=== PATIENT | female | born 1975 | race Caucasian/White ===

== ENCOUNTER 2021-01-27 03:23 | Emergency (ER) | payer SELFPAY ==
[~2021-01-27] VITALS: Ht 160 cm; Wt 97.0 kg
[~2021-01-27 03:23] MED LIST: ASPI-630 PO
[2021-01-27] MEDS ORDERED: HYDROcodon/IBUPROFEN 7.5/200MG 1 TAB TABLET PO ONE (04:00)
--- NOTE | 2021-01-27 04:03 | RAD ---
3 view left hand HISTORY: Pain and swelling AP lateral oblique views The visualized osseous structures appear normal. IMPRESSION: No acute findings. Electronically signed by: Ernie Ceja III, MD (01/27/2021 4:01 AM) [facility]
--- NOTE | 2021-01-27 04:18 | PHYS DOC ---
Past History Past Medical History: DVT, Other Past Surgical History: Appendectomy, Cholecystectomy, Tubal ligation Smoking: Cigarettes Alcohol Use: None Drug Use: None Adult General Chief Complaint Chief Complaint: FINGER INJURY HPI HPI Patient is a 45-year-old female presents with left pinky finger pain for 2 days. States she is not sure what is hurting and denies any traumas that she is aware of. States she went to another ER yesterday and was told nothing was broken. States it still hurts, 8 out of 10, sharp in nature. Denies any recent travel, fevers, chest pain or shortness of breath, abdominal pain, nausea, vomiting. Denies any numbness/weakness/tingling. Denies any trouble sitting standing or walking. Review of Systems Review of Systems Review of systems otherwise unremarkable except noted in HPI Current Medications Current Medications Current Medications Medications (Trade) Dose Ordered Sig/Martir Start Time Stop Time Status Last Admin Dose Admin Hydrocodone Bitartrate/ Ibuprofen (Vicoprofen 7.5-200) 1 tab 1X ONCE 01/27/21 04:00 01/27/21 04:01 DC 01/27/21 04:13 1 TAB Allergies Allergies Allergies Coded Allergies Type Severity Reaction Last Updated Verified Penicillins Allergy Unknown 03/10/14 Yes Sulfa (Sulfonamide Antibiotics) Allergy Unknown 03/10/14 Yes Physical Exam Physical Exam Constitutional: Well developed, well nourished, no acute distress, non-toxic appearance. [] Cardiovascular: Sinus tachycardia Lungs & Thorax: No respiratory distress Extremities: Tenderness around proximal portion of left fifth digit with no obvious deformities, bruising, swelling, erythema. Range of motion intact. Neurovascular exam intact. Neurologic: Alert and oriented X 3, normal motor function, normal sensory function, no focal deficits noted. [] Psychologic: Affect normal, judgement normal, mood normal. [] Current Patient Data Vital Signs Vital Signs Date Time Temp Pulse Resp B/P (MAP) Pulse Ox O2 Delivery O2 Flow Rate FiO2 01/27/21 03:23 98.1 101 18 151/97 (115) 100 Room Air EKG EKG [] Radiology/Procedures Radiology/Procedures [] Heart Score C/O Chest Pain: No Risk Factors: Risk Factors: DM, Current or recent (<one month) smoker, HTN, HLP, family history of CAD, obesity. Risk Scores: Risk Factors: DM, Current or recent (<one month) smoker, HTN, HLP, family history of CAD, obesity. Course & Med Decision Making Course & Med Decision Making Patient comes in with left pinky pain for 2 days Vital signs notable for hypertension. Physical exam noted above. Neurovascular exam intact. Imaging with no acute osseous abnormalities. Patient given pain medicine in the emergency department and ice pack. Discussed pain management at home with Tylenol, ibuprofen and ice. Discussed all findings with patient advised to follow-up with primary care physician when she can to discuss ED visit. Gave return precautions to the ED. Patient grateful, verbalized understanding and agreed with plan of discharge. [] Dragon Disclaimer Dragon Disclaimer This electronic medical record was generated, in whole or in part, using a voice recognition dictation system. Departure Departure: Disposition: HOME / SELF CARE / HOMELESS Condition: GOOD Referrals: GALE DOAN MD (PCP) Patient Instructions: RICE - Routine Care for Injuries Additional Instructions: Please read the attached information carefully. Please begin a Tylenol, ibuprofen and ice regimen as discussed. Please follow-up with your primary care physician as soon as you can to discuss ED visit. Please come back to the ED with new or concerning symptoms as discussed. AMINA BLACKMAN MD January 27, 2021 04:17
[2021-01-27 04:25] VITALS: BP 128/81
== END 2021-01-27 04:25 | disposition home or self-care (01) ==
LOC: ER 03:23
DX: M79.645 Pain in left finger(s) (principal); F17.210 Nicotine dependence, cigarettes, uncomplicated; Z86.718 Personal history of other venous thrombosis and embolism; Z88.0 Allergy status to penicillin; Z88.2 Allergy status to sulfonamides
CPT/HCPCS: 73130; 99283